=== PATIENT | male | born 1970 | race Caucasian/White ===

== ENCOUNTER 2021-05-17 09:03 | Emergency (ER) | payer OTHER ==
[2021-05-17] MEDS ORDERED: Ondansetron 4 MG/2 ML SDV IVPUSH ONE (09:32)
[2021-05-17] MEDS ORDERED: Sodium Chloride 0.9% 1,000 ML IV ONE (09:32)
[2021-05-17 10:16] LABS: BLOOD UREA NITROGEN,BUN 15 mg/dL (7.0-18.0); CARBON DIOXIDE,CO2 24.7 mmol/L (21.0-32.0); CHLORIDE,CL 98 mmol/L (98-107); GLUCOSE RANDOM 171 mg/dL (74-106); LIPASE 60 U/L (73-393); SODIUM,NA 137 mmol/L (136-148)
== END 2021-05-17 11:49 | disposition home or self-care (01) ==
LOC: MW.ED 09:03
DX: R19.7 Diarrhea, unspecified (principal); E11.9 Type 2 diabetes mellitus without complications
CPT/HCPCS: 36415; 80053; 82947; 83690; 85025; 87045; 87046; 87449; 87899; 96374; 99284; J2405; J7030; 99283